=== PATIENT | male | born 1985 | race Caucasian/White ===

== ENCOUNTER 2017-10-11 09:47 | Day surgery (SDC) ==
[2015-08-18 16:00] VITALS: BMI 20.7
[2017-10-11] MEDS ORDERED: LIDOCAINE 1% 20 ML MDV ID STA (10:38)
[2017-10-11] MEDS ORDERED: DIPRIVAN 20 ML VIAL IVP ONE (11:45)
[2017-10-11] MEDS ORDERED: VERSED ONE (11:45)
[2017-10-11 17:04] VITALS: BP 128/67; TEMP 98.5
--- NOTE | 2017-10-13 11:03 | OP ---
INDICATIONS FOR PROCEDURE: 32-year-old gentleman presents for evaluation of persistent heartburn. He states he has had heartburn over the last 12 years. This improved since he stopped chewing tobacco two months ago. He is scheduled for endoscopy investigation. MEDICATIONS: SEE ANESTHESIA NOTES. PROCEDURE: ENDOSCOPY, ESOPHAGEAL BIOPSY. REPORT: The risks, benefits, alternatives and limitations were discussed in detail with the patient. Informed consent was obtained. After adequate sedation was achieved, the video endoscope was introduced in the posterior pharynx and esophagus under direct vision and easily advanced down to the second portion of the duodenum. I then slowly withdrew. The duodenal mucosa appeared unremarkable as did the duodenal bulb. The antrum and body were relatively unremarkable. The scope was retroflexed to look at the cardia and fundus which was unremarkable. The scope was anteflexed and withdrawn back through the esophagus which was unremarkable. The GE junction was irregular but at the top of the gastric folds. This was located at the diaphragmatic hiatus. I biopsied the GE junction in four quadrants for histologic review. The esophagus was normal otherwise. The patient tolerated the procedure well with stable vital signs and pulse oximetry throughout. IMPRESSION: 1. NORMAL ENDOSCOPY EXAM EXCEPT FOR VARIABLE GASTROESOPHAGEAL JUNCTION RECOMMENDATIONS: 1. Await esophageal biopsy results. If there is evidence of Monsalve's then I suggest a surveillance examination again in three years. 2. Strict reflux precautions and I have gone over these with him including a healthy diet and healthy lifestyle. 3. I suggest he use an [id number] H2 caitlin such as Zantac or Pepcid for his breakthrough heartburn. 4. Will see him back in the office as needed. CC: DR. SHARATH OVERTON
== END 2017-10-11 12:55 | disposition home or self-care (01) ==
LOC: SURG 09:47
PROVIDERS: ATTEND Internal Medicine Gastroenterology
DX: R12 Heartburn (principal); K21.0 Gastro-esophageal reflux disease with esophagitis
CPT/HCPCS: 93005; 93010

== ENCOUNTER 2018-02-02 18:47 | Emergency (ER) ==
[2018-02-02 18:52] VITALS: BP 131/79; TEMP 97.7; BMI 24.3
--- NOTE | 2018-02-02 19:59 | ED.PDOC ---
General ED Provider: Dr. DANILO JAVIER Chief Complaint: Chest Pain Stated Complaint: complains of chest tightness with palpiations. Pain on the xyphoid process denies any nausea, vomiting or Right upper quadrant pain. Time Seen by Physician: 19:00 Mode of Arrival: Walk-In Information Source: Patient Exam Limitations: No limitations Primary Care Provider: MARCUS BRAMBILA Nursing and Triage Documentation Reviewed and Agree: Yes Does patient meet sepsis criteria?: No System Inflammatory Response Syndrome: Not Applicable Sepsis Protocol: For patient's 13 years and over: Temp is 96.8 and below OR 101 and greater Pulse >90 BPM Resp >20/minute Acutely Altered Mental Status Are patient's symptoms suggestive of a new infection, such as: -Pneumonia -Skin, Soft Tissue -Endocarditis -UTI -Bone, Joint Infection -Implantable Device -Acute Abdominal Infection -Wound Infection -Meningitis -Blood Stream Catheter Infection -Unknown Cardiovascular Complaint Exam - Chest Pain Complaint/Exam Onset: Gradual Duration: 2 hours Symptoms Are: Still present Timing: Intermittent Initial Severity: Severe Location: Reports: Lower sternal Pain Radiates: Reports: Left arm, Right arm Character: Reports: Aching, Tightness Aggravating: Reports: None Alleviating: Reports: None Associated Signs and Symptoms: Reports: Palpitations. Denies: Diaphoresis, Nausea, Vomiting, Fever, Cough, Hemoptysis, Back pain, Abdominal pain, Dizziness , Short of air, Calf pain, Calf swelling Review of Systems - Review Of Systems Constitutional: Reports: No symptoms Eyes: Reports: No symptoms Ears, Nose, Mouth, Throat: Reports: No symptoms Respiratory: Reports: No symptoms Cardiac: Reports: Chest pain, Palpitations GI: Reports: Abdominal pain (epigastric area ) : Reports: No symptoms Musculoskeletal: Reports: No symptoms Skin: Reports: No symptoms Neurological: Reports: Anxiety Endocrine: Reports: No symptoms Hematologic/Lymphatic: Reports: No symptoms All Other Systems: Reviewed and Negative Past Medical History - Past Medical History Previously Healthy: Yes Endocrine: Reports: None Cardiovascular: Reports: None Respiratory: Reports: None Hematological: Reports: None Gastrointestinal: Reports: None Genitourinary: Reports: Kidney stones Neuro/Psych: Reports: None Musculoskeletal: Reports: None Cancer: Reports: None - Surgical History General Surgical History: Reports: None - Family History Family History: Reports: None - Social History Smoking Status: Chews tobacco (tyring to quit is on patches. ) Hx Substance Use: No Alcohol Screening: Occasionally Physical Exam - Physical Exam Appearance: Ill-appearing, Well-nourished Ill-appearing: Mild Pain Distress: Mild Eyes: JIMY, EOMI, Conjunctiva clear Neck: Supple Respiratory: Airway patent, Breath sounds clear, Breath sounds equal, Respirations nonlabored Cardiovascular: RRR, Pulses normal, No rub, No murmur GI/: Soft, Nontender, No masses, Bowel sounds normal, No Organomegaly Musculoskeletal: Normal strength, ROM intact, No edema, No calf tenderness Skin: Warm, Dry, Normal color Neurological: Alert, Oriented Psychiatric: Anxious Interpretation - Radiology Interpretation Radiology Interpretation By: ED Physician Radiology Results: Negative Exam Interpreted: CXR - EKG Interpretation Time of EKG #1: 19:20 Rate: Normal Rhythm: Sinus Ectopy: None [place]: NL ST Segment: Normal Interpretation: Normal EKG Critical Care Note - Critical Care Note Total Time (mins): 0 Course - Course Hematology/Chemistry: 02/02/18 19:30 02/02/18 19:30 Orders, Labs, Meds: Lab Review 02/02/18 02/02/18 19:30 19:30 WBC 6.18 RBC 4.95 Hgb 14.2 Hct 40.5 L MCV 81.8 MCH 28.7 MCHC 35.1 RDW Coeff of Ad 12.7 Plt Count 189 Immature Gran % (Auto) 0.2 Neut % (Auto) 63.7 Lymph % (Auto) 25.1 [place] % (Auto) 8.1 Eos % (Auto) 2.4 Baso % (Auto) 0.5 Immature Gran # (Auto) 0.0 Neut # (Auto) 3.9 Lymph # (Auto) 1.6 [place] # (Auto) 0.5 Eos # (Auto) 0.2 Baso # (Auto) 0.0 Sodium 137.1 Potassium 3.79 Chloride 100.2 Carbon Dioxide 30.9 H Anion Gap 9.79 BUN 14.6 Creatinine 0.84 Estimated GFR (MDRD) 106.00 BUN/Creatinine Ratio 17.38 Glucose 95.5 Calcium 8.83 Total Bilirubin 0.24 AST 23.5 ALT 26.4 Alkaline Phosphatase 51.4 Total Creatine Kinase 59.1 Troponin I < 0.012 Total Protein 6.49 Albumin 4.15 Globulin 2.34 Albumin/Globulin Ratio 1.77 Orders Category Date Time Status EKG-(ED ONLY) Stat CARDIO 02/02/18 19:00 Completed EKG-(ED ONLY) Stat CARDIO 02/02/18 19:21 Ordered CBC W/ AUTO DIFF Stat LAB 02/02/18 19:30 Completed COMPREHENSIVE METABOLIC PANEL Stat LAB 02/02/18 19:30 Completed CREATINE KINASE Stat LAB 02/02/18 19:30 Completed TROPONIN I Stat LAB 02/02/18 19:30 Completed CHEST, 2 VIEWS PA & LAT Stat RADS 02/02/18 19:21 Taken Vital Signs: Temp Pulse Resp BP Pulse Ox 02/02/18 18:48 97.7 F 89 16 131/79 96 SHANA Risk Score Age >/= 65: No >/= 3 CAD Risk Factors: No Known CAD (Stenosis >/= 50%): No ASA Use in Past 7 Days: No Severe Angina (>/= 2 episodes in 24 hours): No EKG ST Changes >/= 0.5mm: No Postive Cardiac Marker: No SHANA Total Score: 0 SHANA Risk Score: Risk Score Odds of by 30D 0 0.1 (0.1-0.2) 1 0.3 (0.2-0.3) 2 0.4 (0.3-0.5) 3 0.7 (0.6-0.9) 4 1.2 (1.0-1.5) 5 2.2 (1.9-2.6) 6 3.0 (2.5-3.6) 7 4.8 (3.8-6.1) Departure - Departure Time of Disposition: 20:48 Disposition: HOME SELF-CARE Discharge Problem: Pleurisy without effusion, Anxiety Instructions: Pleurisy (ED), Anxiety (ED) Condition: Fair Pt referred to PMD for follow-up: Yes IPMP verified?: No Additional Instructions: Follow up with Dr. Brambila in 3 days Take Motrin or Tylenol as needed for pain Return if worse Prescriptions: Buspirone HCl 7.5 mg PO BID #25 tablet Allergies/Adverse Reactions: Allergies AMOXICILLIN Adverse Reaction (Mild, Uncoded 02/02/18 18:53) Nausea Home Medications: Ambulatory Orders Pantoprazole Sodium [Protonix] 1 tab PO DAILY 10/07/17 Buspirone HCl 7.5 mg PO BID #25 tablet 02/02/18 Disposition Discussed With: Patient
--- NOTE | 2018-02-03 07:41 | DI ---
EXAM: PA and lateral views of the chest HISTORY: Chest pain COMPARISON: None FINDINGS: The cardiomediastinal silhouette is normal. There is no pneumothorax or pleural effusion. There is no consolidation, nodule or mass. The osseous structures are unremarkable. IMPRESSION: No acute cardiopulmonary process
== END 2018-02-02 20:59 | disposition home or self-care (01) ==
LOC: ED 18:47
DX: R09.1 Pleurisy (principal); F41.9 Anxiety disorder, unspecified; Z72.0 Tobacco use
CPT/HCPCS: 36415; 80053; 82550; 84484; 85025; 93005; 93010; 99283